=== PATIENT | male | born 1955 | race Caucasian/White ===

== ENCOUNTER → 2017-08-05 | Outpatient (CLI) | payer OTHER ==
[2017-04-06 15:18] VITALS: BMI 38.5
[~2017-08-05] MED LIST: EZE10 PO; FAM20 PO; FAMO20TA28 PO; FAMO40TA62; FISH OIL 1,2001 CAP PO; FLU20 PO; FLUO40CA70 PO; GABA-549 PO; HCTZ25; LOR10 PO; LOR5 PO; LOSA100T67 PO; LOSA50TA73 PO; LOVA20TA99; OMEP-153 PO; OMEP-218 PO; ONDA4TAB SL; PER PO
--- NOTE | 2017-08-05 16:36 | RADIOLOGY IMAGING REPORT ---
[place] [facility] [place] NAME: Manuel Browne : 1955 MR: [id number] V: [id number] EXAM DATE: ORDERING PHYSICIAN: DEMI RAYMOND [place]CHN[place] [facility] [place] : 1955 Visit/Account:[id number] Date of Sevice: 08/05/2017 CT of the left ankle Indication: Ankle pain. Prior arthrodesis. Comparison: Intraoperative images 04/05/2017 are reviewed. Technique: Axial CT images were obtained through the left ankle. Reformatted coronal and sagittal ashutosh ges were reviewed. One of the following dose optimization techniques was utilized in the performance of this exam: Autom ated exposure control; adjustment of the mA and/or kV according to the patient's size; or use of an i terative reconstruction technique. Specific details can be referenced in the facility's radiology C T exam operational policy. Findings: There has been previous osteotomy performed of the distal fibular shaft. This is ununited and a trans versely oriented screw traverses the fibular shaft just distal to the osteotomy extending into the ad jacent tibia. There has been a tibiotalar joint arthrodesis procedure performed with 3 cannulated lag screws. A fourth screw traverses the lateral ankle mortise through the distal fibula. The tibiotalar joint space remains visible. No bridging bone is seen at the arthrodesis. Lateral ankle mortise stella ins well-visualized. Extensive joint space narrowing at the tibiotalar joint with subchondral scleros is and cyst formation. There are protuberant osteophytes. There is a joint effusion with joint bodies . The cannulated lag screw which is seen traversing the medial ankle mortise terminates along the far anterior and medial margin of the posterior subtalar joint. There is moderate severity posterior subtalar joint osteoarthritis with subchondral edema and scleros is. Middle subtalar joint space is maintained. No hindfoot fracture. Midfoot joints are appropriately aligned. There are mild changes of osteoarthritis suggested at the f irst and second tarsometatarsal joints. Overall, there is a diffuse osteopenia which may reflect disu se in the appropriate setting. With respect to the soft tissues, there is lateral greater than medial soft tissue swelling at the an kle. Calcifications/ossifications seen in the expected regions of the peroneus brevis and peroneus lo ngus tendons just below the lateral malleolus. There is an accessory navicular bone, a normal anatomic variant. IMPRESSION: 1. Postoperative changes from prior left ankle tibiotalar joint instrumented arthrodesis. No evidence of bridging bone at the arthrodesis site. As above, one of the fixation screws projects along the an terior and far medial margin of the posterior subtalar joint. 2. Ununited fibular osteotomy. 3. Diffuse osteopenia may be related to disuse. Correlate clinically. 4. Severe tibiotalar joint osteoarthritis with a trace joint effusion and posterior recess joint bodi es. Report Dictated By: Castro Pepper at 08/05/2017 4:19 PM Report E-Signed By: Castro Pepper at 08/05/2017 4:31 PM WSN:[id number]
== END ==
LOC: CT 03:05
PROVIDERS: ATTEND Orthopaedic Surgery
DX: M85.872 Other specified disorders of bone density and structure, left ankle and foot (principal); M19.072 Primary osteoarthritis, left ankle and foot; Z98.1 Arthrodesis status

== ENCOUNTER → 2017-10-17 | Outpatient (CLI) | payer OTHER ==
[2017-04-06 15:18] VITALS: BMI 38.5
--- NOTE | 2017-10-17 12:22 | RADIOLOGY IMAGING REPORT ---
FACILITY: [facility] PATIENT NAME: Manuel Browne : 1955 MR: [id number] V: [id number] EXAM DATE: ORDERING PHYSICIAN: DEMI RAYMOND TECHNOLOGIST: Location: [facility] - [place], [place] Patient: Manuel Browne : 1955 Visit/Account:[id number] Date of Sevice: 10/17/2017 ANKLE LEFT W/O CONTRAST COMPARISON: Noncontrast left ankle CT August 05, 2017. HISTORY: Status post left ankle fusion, nonunion, pain on the medial side of the left ankle. TECHNIQUE: Noncontrast axial CT of the left ankle with coronal and sagittal reformats. One of the following dose optimization techniques was utilized in the performance of this exam: auto mated exposure control; adjustment of the mA and/or kV according to patient size; or use of iterative reconstruction technique. Specific details can be referenced in the facility's radiology CT exam op erational policy. CONTRAST: None. FINDINGS: BONES : Previous transverse osteotomy, distal fibular shaft about 5.3 cm proximal to the tip of the lateral malleolus, with chronic periosteal thickening but no evidence of union or significant interva l change. Transversely oriented screw traverses the fibular shaft a few millimeters distal to the ost eotomy, and terminates in the distal tibial metaphysis without evidence of loosening. No change. There are 3 crisscrossing cannulated lag screws traversing the tibiotalar joint, without change kenton red to previous and without evidence of hardware loosening. The tibiotalar joint is narrowed but ther e is no appreciable bony fusion across it, with mild tibiotalar subchondral sclerosis and cyst format ion, no change. The medial ankle mortise screw protrudes minimally into the posterior subtalar joint, stable. Additional screw extending from the lateral malleolus to the talus across the lateral ankle mortise, narrowing the lateral ankle mortise without effusion or evidence of loosening. No change. Moderate tibiotalar joint spurring anteriorly including a beaklike osteophyte arising from the dorsal aspect of the talar head/neck junction. Prominent posterior process of the talus with an adjacent 1. 7 cm os trigonum. The bones of the midfoot are demineralized similar to previous. Is no fractures are seen. Calcaneal h eight is preserved. 1.4 cm accessory navicular again noted. FLUID: No appreciable effusion or drainable fluid collection. SOFT TISSUES: Unremarkable. No focal muscle atrophy or appreciable muscle edema. OTHER: Negative. IMPRESSION: 1. No appreciable change in the left ankle compared to August 05, 2017. 2. Postoperative changes with arthrodesis/internal fixation hardware, without evidence of fracture o r hardware loosening. 3. Tibiotalar joint narrowing and degenerative changes without evidence of bony fusion. Report Dictated By: Dale Costa at 10/17/2017 11:57 AM Report E-Signed By: Dale Costa at 10/17/2017 12:19 PM WSN:[id number]
== END ==
LOC: CT 01:35
PROVIDERS: ATTEND Orthopaedic Surgery
DX: Z96.89 Presence of other specified functional implants (principal); Z96.7 Presence of other bone and tendon implants

== ENCOUNTER → 2018-07-24 | Outpatient (CLI) | payer OTHER ==
[2017-04-06 15:18] VITALS: BMI 38.5
[~2018-07-24] MED LIST changes: -LOSA100T67 PO; +LOSA100T75 PO
--- NOTE | 2018-07-24 09:29 | EKG ---
FACILITY: [facility] PATIENT NAME: KING MELARA : [id number] MR: [id number] V: [id number] EXAM DATE: ORDERING PHYSICIAN: DILLON DOBSON TECHNOLOGIST: Test Reason : Blood Pressure : / mmHG Vent. Rate : 053 BPM Atrial Rate : 053 BPM P-R Int : 174 ms QRS Dur : 152 ms QT Int : 432 ms P-R-T Axes : 063 095 -36 degrees QTc Int : 405 ms Sinus bradycardia with sinus arrhythmia Left bundle branch block Abnormal ECG No previous ECGs available Confirmed by MARÍA CLINE ([id number]) on 07/24/2018 9:39:31 AM Referred By: Confirmed By:MARÍA CLINE
[2018-07-24 09:37] LABS: PLATELET COUNT, AUTOMATED 195 K/uL (150-450)
== END ==
LOC: LAB 09:01
PROVIDERS: ATTEND Orthopaedic Surgery
DX: Z01.818 Encounter for other preprocedural examination (principal); Z01.812 Encounter for preprocedural laboratory examination; Z01.810 Encounter for preprocedural cardiovascular examination; R00.1 Bradycardia, unspecified; I44.7 Left bundle-branch block, unspecified; R94.31 Abnormal electrocardiogram [ECG] [EKG]
CPT/HCPCS: 36415; 81001; 82040; 82247; 82310; 82374; 82435; 82565; 82947; 84075; 84132; 84155; 84295; 84450; 84460; 84520; 85025; 93005

== ENCOUNTER → 2018-08-25 | Outpatient (CLI) | payer OTHER ==
[2017-04-06 15:18] VITALS: BMI 38.5
== END ==
LOC: LAB 12:20
PROVIDERS: ATTEND Anesthesiology
DX: Z01.812 Encounter for preprocedural laboratory examination (principal); M19.012 Primary osteoarthritis, left shoulder
CPT/HCPCS: 36415; 86850; 86900; 86901